=== PATIENT | male | born 1950 ===

== ENCOUNTER 2022-01-15 22:51 | Inpatient (IN) | payer OTHER ==
[~2022-01-15] VITALS: Ht 180.3 cm; Wt 81.2 kg
--- NOTE | 2022-01-15 23:09 | NUR ---
Pt bib pvt ambulance from [facility] for medical clearance for admission to MHU, pt is on 5150 hold, accepted by Dr. Madrid for DTS.
--- NOTE | 2022-01-15 23:15 | NUR ---
Dr. Meyer on bedside for MSE.
[2022-01-15] MEDS ORDERED: LATA2.5D15 EACHEYE (23:22)
[2022-01-15] MEDS ORDERED: CHOL1CRY2 PO (23:22)
[2022-01-15] MEDS ORDERED: HYDR-3980 PO (23:22)
[2022-01-15] MEDS ORDERED: DOCU100C36 PO (23:22)
[2022-01-15] MEDS ORDERED: ATOR40TA PO (23:22)
[2022-01-15] MEDS ORDERED: TAMS-3 PO (23:22)
[2022-01-15] MEDS ORDERED: IBUP-1957 PO (23:22)
[2022-01-15] MEDS ORDERED: POLY15DR27 EACHEYE (23:22)
[2022-01-15] MEDS ORDERED: ASPI-612 PO (23:22)
[2022-01-15] MEDS ORDERED: MECL-159 PO (23:22)
[2022-01-15] MEDS ORDERED: FLUT16SP16 BNOSTRILS (23:22)
[2022-01-15] MEDS ORDERED: DULO30CA2 PO (23:22)
[2022-01-15] MEDS ORDERED: LISI10TA29 PO (23:22)
[2022-01-15] MEDS ORDERED: SILD50TA PO (23:22)
[2022-01-15] MEDS ORDERED: ACET-73 PO (23:22)
--- NOTE | 2022-01-16 00:43 | NUR ---
Pt. admitted to MHU, room 145C, under care of Dr. Madrid. Report given to KATHERINE Gomez. Belongs List completed
[2022-01-16 00:50] VITALS: BP 143/74
[2022-01-16] MEDS ORDERED: MAG HYDROX/AL HYDROX/SIMETH 30 ML LIQUID UDC PO PRN (02:30)
[2022-01-16] MEDS ORDERED: ACETAMINOPHEN 325 MG TABLET PO PRN (02:30)
[2022-01-16] MEDS ORDERED: MAGNESIUM HYDROXIDE 30 ML LIQUID UDC PO PRN (02:30)
[2022-01-16 06:49] LABS: *BILIRUBIN,URIN NEGATIVE (NEGATIVE); *CLARITY,URINE CLEAR (CLEAR); *COLOR,URINE YELLOW (YELLOW); *KETONES,URINE NEGATIVE (NEGATIVE); *UROBILINOGEN,URINE 0.2 E.U./dl (NORMAL); LEUKOCYTE ESTERASE ,URINE NEGATIVE (NEGATIVE); NITRITE, URINE NEGATIVE (NEGATIVE); UGLUCOSE NEGATIVE (NEGATIVE)
[2022-01-16 06:50] LABS: *BLOOD, URINE TRACE (NEGATIVE)
[2022-01-16 06:56] LABS: BACTERIA,URINE NONE SEEN /HPF (NONE SEEN); WBC,URINE NONE SEEN /HPF (0-3)
[2022-01-16 06:57] LABS: SQUAMOUS EPITHELIAL CELL,UR FEW /HPF (NONE SEEN)
[2022-01-16] MEDS: LORAZEPAM 0.5 MG TABLET PO PRN (09:02)
--- NOTE | 2022-01-16 09:18 | NUR ---
Gps/Long Distance Billing Operator- Awake , alert, noted to be anxious, encouraged to eat his breakfast, claimed not feeling well, noted nervous ,too much noise per patient. Ambulated with P.T. slightly unsteady gait, per P.T. Frequency in urinating noted, ambulates to the bathroom sba. , bed alarm on , urinal place with in his reach .
[2022-01-16 09:53] VITALS: BP 162/86
--- NOTE | 2022-01-16 16:00 | NUR ---
Gps/Post Form Remover-Called Dr Saqib Ryder, informed of elevated B/P's , orders was received.
[2022-01-16] MEDS ORDERED: FLUTICASONE PROP NASAL SPRAY 16 GM BOTTLE NS PRN (16:15)
[2022-01-16] MEDS: LISINOPRIL 10 MG TABLET PO SCH (16:29)
[2022-01-16] MEDS: METOPROLOL TARTRATE 25 MG TABLET PO SCH ×2 (16:30→20:31)
[2022-01-16 16:32] VITALS: BP 166/78
--- NOTE | 2022-01-16 17:00 | NUR ---
Gps/Panel Beater- Patient's son Albert in to visit patient, reviewed medications as requested, verbalized understanding.
[2022-01-16] MEDS: DOCUSATE SODIUM 100 MG CAPSULE PO SCH (17:08)
[2022-01-16 20:00] VITALS: BP 124/82
[2022-01-16] MEDS: TAMSULOSIN HCL 0.4 MG CAP.SR.24H PO SCH (20:30)
[2022-01-16] MEDS: ATORVASTATIN 40 MG TABLET PO SCH (20:30)
[2022-01-16] MEDS: HYDROCODONE/APAP 10-325 MG TABLET PO PRN (20:32)
[2022-01-16] MEDS: LATANOPROST OPHT DROP 2.5 ML BOTTLE EACHEYE SCH (21:00)
[2022-01-17] MEDS: LORAZEPAM 0.5 MG TABLET PO PRN (02:29)
--- NOTE | 2022-01-17 06:33 | NUR ---
Patient slept 5.15 hours last night. The patient is depressed, but denied SI at this time. Patient verbalized not wanting to go back to where he was living and seemed anxious. A couple of times he got up during the night to void. Patient had a hard time sleeping so he took a shower and slept after that. Safety stratiges are in place. VS were WNL and the patient has been medication compliant. Some forgetfulness noted.
[2022-01-17 07:30] VITALS: BP 170/91
[2022-01-17] MEDS: LISINOPRIL 10 MG TABLET PO SCH (08:00)
[2022-01-17] MEDS: METOPROLOL TARTRATE 25 MG TABLET PO SCH ×2 (08:01→20:19)
[2022-01-17] MEDS: ASPIRIN 325 MG TABLET PO SCH (08:14)
[2022-01-17] MEDS: DOCUSATE SODIUM 100 MG CAPSULE PO SCH ×2 (08:16→17:54)
[2022-01-17] MEDS: CHOLECALCIFEROL 1,000 UNIT TABLET PO SCH (08:18)
[2022-01-17 16:00] VITALS: BP 159/95
[2022-01-17] MEDS ORDERED: DULOXETINE 30 MG CAPSULE.DR PO SCH (17:00)
--- NOTE | 2022-01-17 17:00 | NUR ---
Gps/Systems Lead- Patient anxious verbalizing concerns that he hasnt moved his bowels today, claimed had good bowel movement yesterday. Adequate fluid intake , on routine stool softener , patient reassured to give it time. Had been cooperative with staff , medsurekha. evelyn , had 2 visitors (sons) visited him today Had been in and out of his room, encouraged to stay in the dinning room during his meals.
[2022-01-17 20:04] VITALS: BP 176/96
[2022-01-17] MEDS: TAMSULOSIN HCL 0.4 MG CAP.SR.24H PO SCH (20:19)
[2022-01-17] MEDS: ATORVASTATIN 40 MG TABLET PO SCH (20:19)
[2022-01-17] MEDS: POLYVINYL ALCOHOL OPHT DROPS 15 ML BOTTLE EACHEYE PRN (20:20)
[2022-01-17] MEDS: HYDROCODONE/APAP 10-325 MG TABLET PO PRN (20:20)
[2022-01-17] MEDS: LATANOPROST OPHT DROP 2.5 ML BOTTLE EACHEYE SCH (21:00)
[2022-01-17] MEDS: TEMAZEPAM 7.5 MG CAPSULE PO PRN (21:38)
[2022-01-18] MEDS: LORAZEPAM 0.5 MG TABLET PO PRN ×2 (03:17→09:28)
[2022-01-18] MEDS: HYDROCODONE/APAP 10-325 MG TABLET PO PRN (03:17)
--- NOTE | 2022-01-18 06:11 | NUR ---
Patient slept on and off last night for 5.30 hours. Patient is up early, anxious and wanted to shower. While in the shower, he had a bloody nose. At night this patient c/o pain in his hip for which he was medicated. Also, he had to get up frequently to urinate and was often anxious appearing. No active SI noted. The patient is forgetful and confused at times and needs reorientation to the situation along with reassurance. Again, the patient verbalized that he is worried and does not want to return home with his . Safety Stratiges are in place.
[2022-01-18 07:51] VITALS: BP 114/66
[2022-01-18] MEDS: ASPIRIN 325 MG TABLET PO SCH ×2 (09:00→09:28)
[2022-01-18] MEDS: DOCUSATE SODIUM 100 MG CAPSULE PO SCH ×2 (09:28→18:29)
[2022-01-18] MEDS: LISINOPRIL 10 MG TABLET PO SCH (09:28)
[2022-01-18] MEDS: CHOLECALCIFEROL 1,000 UNIT TABLET PO SCH (09:28)
[2022-01-18] MEDS: METOPROLOL TARTRATE 25 MG TABLET PO SCH ×2 (09:29→20:39)
--- NOTE | 2022-01-18 14:55 | NUR ---
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 I do not know what happened..", unable to formulate a viable plan for self care, depressed mood and anxious affect, needs a lot of prompting to participate in therapeutic groups, continue to monitor for safety, continue with treatment plan.
--- NOTE | 2022-01-18 15:38 | NUR ---
JOAO Discharge Note: Pt was brought to [facility] from [facility] due to suicide attempt at [facility]. JOAO spoke with pt's son, Albert who stated that pt will be discharged back to live with him upon discharge at [address] [place] [address]. Pt does not have a DPOA or conservatorship.
--- NOTE | 2022-01-18 15:39 | NUR ---
Admit Source: Pt was brought to [facility] from [facility] due to suicide attempt at [facility]. SW spoke with pt's son, Albert who stated that pt will be discharged back to live with him upon discharge at [address] [place] [address]. Pt does not have a DPOA or conservatorship.
--- NOTE | 2022-01-18 16:08 | NUR ---
Firearms Report: [facility] completed and submitted a [employer] firearms report for 5150 harm to self. A copy of report has been placed in patient chart.
--- NOTE | 2022-01-18 16:09 | NUR ---
JOAO Initial Discharge Note: Pt was brought to [facility] from [facility] due to suicide attempt at [facility]. JOAO spoke with pt's son, Albert who stated that pt will be discharged back to live with him upon discharge at [address] [place] [address]. Pt does not have a DPOA or conservatorship.
--- NOTE | 2022-01-18 16:20 | NUR ---
JOAO UR Note: JOAO returned Thuy's call ([phone]) with [employer] insurance and left 2 voicemails for a call back stating pt's current status and to discuss authorization for continuation of care at [facility] due to last day of authorized care on 01/18/22.
[2022-01-18] MEDS ORDERED: DULOXETINE 30 MG CAPSULE.DR PO SCH (17:00)
[2022-01-18] MEDS: DULOXETINE 60 MG CAPSULE.DR PO SCH (18:29)
[2022-01-18] MEDS: TAMSULOSIN HCL 0.4 MG CAP.SR.24H PO SCH (20:38)
[2022-01-18] MEDS: ATORVASTATIN 40 MG TABLET PO SCH (20:39)
[2022-01-18] MEDS: LATANOPROST OPHT DROP 2.5 ML BOTTLE EACHEYE SCH (20:39)
[2022-01-18 22:14] VITALS: BP 139/80
[2022-01-19 06:42] LABS: HEMATOCRIT 40.7 % (36.7-47.1); MEAN CORPUSCULAR HEMOGLOBIN 34.5 uug (23.8-33.4); MEAN CORPUSCULAR VOLUME 97.6 fL (73.0-96.2); PLATELET COUNT (AUTO) 256 K/uL (152-348)
[2022-01-19 07:35] LABS: BILIRUBIN,TOTAL 0.8 mg/dL (0.2-1.0); CREATININE 0.7 mg/dL (0.6-1.3); MAGNESIUM 2.2 mg/dL (1.8-2.4); PHOSPHOROUS 3.4 mg/dL (2.5-4.9); POTASSIUM 4.3 mmol/L (3.5-5.1); TOTAL PROTEIN, SERUM 6.4 g/dL (6.4-8.2)
[2022-01-19 07:58] VITALS: BP 150/87
[2022-01-19 08:00] LABS: THYROID STIMULATING HORMONE 4.317 mIU/mL (0.358-3.740)
[2022-01-19] MEDS: CHOLECALCIFEROL 1,000 UNIT TABLET PO SCH (08:48)
[2022-01-19] MEDS: DOCUSATE SODIUM 100 MG CAPSULE PO SCH ×2 (08:48→18:01)
[2022-01-19] MEDS: METOPROLOL TARTRATE 25 MG TABLET PO SCH ×2 (08:48→20:45)
[2022-01-19] MEDS: LISINOPRIL 10 MG TABLET PO SCH (08:49)
[2022-01-19] MEDS: ASPIRIN 325 MG TABLET PO SCH (08:49)
--- NOTE | 2022-01-19 09:18 | NUR ---
JOAO UR Note Update: JOAO contacted Thuy ([phone]) with [facility] insurance and another voicemail for a call back to discuss authorization for continuation of care at [facility] due to last day of authorized care on 01/18/22. JOAO stated we are concerned that we have not heard back as pt requires authorization for continued care at [facility]. Authorization number was not left in the voicemail by the insurance.
--- NOTE | 2022-01-19 13:26 | NUR ---
JOAO UR Note Update: JOAO contacted Thuy ([phone]) with [facility] insurance and discussed pt's case. Thuy authorized the pt for continuation of care at [facility] until 01/21/22. Authorization number: [id number]. Pt's family is notified.
[2022-01-19 15:33] VITALS: BP 145/74
[2022-01-19] MEDS: DULOXETINE 60 MG CAPSULE.DR PO SCH (18:01)
--- NOTE | 2022-01-19 18:27 | NUR ---
GPS: Nursing Notes: Destructive Behavior to Self: Patient is awake and responding to his name, cooperative with nursing care, compliant with his medications, denies SI/HI, depressed mood and anxious affect, needs prompting to participate in therapeutic groups, stated that he is sorry of what he did, "I will never do it again.... I read the Bible.. I go to zoroastrian.. I do not know what happened..", unable to formulate a viable plan for self care, continue to monitor for safety, continue with treatment plan.
[2022-01-19 20:22] VITALS: BP 156/88
[2022-01-19] MEDS: TAMSULOSIN HCL 0.4 MG CAP.SR.24H PO SCH (20:45)
[2022-01-19] MEDS: ATORVASTATIN 40 MG TABLET PO SCH (20:45)
[2022-01-19] MEDS: LATANOPROST OPHT DROP 2.5 ML BOTTLE EACHEYE SCH (21:00)
[2022-01-19] MEDS: POLYVINYL ALCOHOL OPHT DROPS 15 ML BOTTLE EACHEYE PRN (21:01)
[2022-01-20 07:30] VITALS: BP 160/98
[2022-01-20] MEDS: DOCUSATE SODIUM 100 MG CAPSULE PO SCH ×2 (08:12→16:50)
[2022-01-20] MEDS: ASPIRIN EC 81 MG TABLET.DR PO SCH (08:12)
[2022-01-20] MEDS: CHOLECALCIFEROL 1,000 UNIT TABLET PO SCH (08:12)
[2022-01-20] MEDS: LISINOPRIL 10 MG TABLET PO SCH (08:13)
[2022-01-20] MEDS: METOPROLOL TARTRATE 25 MG TABLET PO SCH ×2 (08:14→20:53)
[2022-01-20] MEDS: DULOXETINE 60 MG CAPSULE.DR PO SCH (13:12)
[2022-01-20 16:00] VITALS: BP 176/99
--- NOTE | 2022-01-20 16:13 | NUR ---
Received patient sleeping in his room. A/O X 3 to person, place. Pt. is calm, cooperative, depressed, low energy, isolative. Compliant with medications. Patient ambulates independently. Self care. Denies SI/HI AH/VH. Active listening provided. Fall and safety precautions implemented.
[2022-01-20] MEDS: hydrALAZINE HCL 25 MG TABLET PO PRN (16:51)
--- NOTE | 2022-01-20 16:55 | NUR ---
Patient is given Hydralazine 25 mg for high blood pressure of 176/99, will be monitored for effectiveness.
--- NOTE | 2022-01-20 17:57 | NUR ---
Patient blood pressure is 144/83, pulse 74, PRN hydralazine was effective.
[2022-01-20 20:00] VITALS: BP 139/80
--- NOTE | 2022-01-20 20:45 | NUR ---
RECEIVED PATIENT IN HIS ROOM IN BED. HE IS NOTED AWAKE A/O X 3 ABLE TO VERBALIZED FEELINGS. PATIENT DENIED SI/HI/VH/AH HE STATED HE CONTINUE FEELINGS SAD BUT HE IS ABLE TO VERBALLY CFS. PATIENT IS AWARE OF HIS POSSIBLE DISCHARGE TOMORROW AFTERNOON. HE IS NOTED PREOCCUPIED AND ANXIOUS ABOUT HIS IMPENDING DISCHARGE. HE IS REASSURED FOR HIS SAFETY, SAFETY AND FALL PRECAUTIONS ARE IN PLACE. V/S STABLE. HE WAS GIVEN PO FLUIDS AND SNACKS. WILL CONTINUE TO MONITOR.
[2022-01-20] MEDS: TAMSULOSIN HCL 0.4 MG CAP.SR.24H PO SCH (20:53)
[2022-01-20] MEDS: LATANOPROST OPHT DROP 2.5 ML BOTTLE EACHEYE SCH (20:53)
[2022-01-20] MEDS: ATORVASTATIN 40 MG TABLET PO SCH (20:53)
[2022-01-21] MEDS: LORAZEPAM 0.5 MG TABLET PO PRN (06:50)
--- NOTE | 2022-01-21 06:51 | NUR ---
Patient noted hyperverbal, anxious. Ativan 0.5mg po prn was given for anxiety, will continue to monitor.
[2022-01-21 07:30] VITALS: BP 170/97
[2022-01-21] MEDS: DOCUSATE SODIUM 100 MG CAPSULE PO SCH ×2 (08:28→17:26)
[2022-01-21] MEDS: CHOLECALCIFEROL 1,000 UNIT TABLET PO SCH (08:28)
[2022-01-21] MEDS: ASPIRIN EC 81 MG TABLET.DR PO SCH (08:28)
[2022-01-21] MEDS: LISINOPRIL 10 MG TABLET PO SCH (08:29)
[2022-01-21] MEDS: METOPROLOL TARTRATE 25 MG TABLET PO SCH ×2 (08:29→20:22)
[2022-01-21 10:49] VITALS: BP 117/76
--- NOTE | 2022-01-21 11:27 | NUR ---
JOAO UR Note Update: JOAO contacted Olesya from [facility] insurance ([phone]) for pt's authorization review. JOAO left a voicemail for a call back with pt's information to discuss pt's case as last authorized day for care is today, 01/21/22. Authorization #[id number].
[2022-01-21] MEDS: DULOXETINE 60 MG CAPSULE.DR PO SCH (12:17)
--- NOTE | 2022-01-21 14:20 | NUR ---
JOAO UR Note Update: JOAO contacted Olesya from [facility] insurance ([phone]) for pt's authorization review. JOAO left a voicemail for a call back and provided all of the clinicals that Olesya stated to do so in the voicemail for doctor to review. Pt's last authorized day for care is today, 01/21/22. Authorization #[id number]. Pt and pt's son, Albert ([phone]) are aware of the current status and ready for discharge today if insurance does not authorize continuation of care.
--- NOTE | 2022-01-21 15:36 | NUR ---
Received patient sleeping in his room. A/O X 3 to person, place. Pt. is cooperative with care and complaint with medications, depressed, disorganized. BP was 170/97, Lisinopril 10 mg given as scheduled, BP is 117/76 after an hour. Reassurance given. Denies SI/HI AH/VH. Fall and safety precautions implemented.
[2022-01-21 16:51] VITALS: BP 129/84
[2022-01-21 20:00] VITALS: BP 136/76
[2022-01-21] MEDS: TAMSULOSIN HCL 0.4 MG CAP.SR.24H PO SCH (20:22)
[2022-01-21] MEDS: LATANOPROST OPHT DROP 2.5 ML BOTTLE EACHEYE SCH (20:22)
[2022-01-21] MEDS: ATORVASTATIN 40 MG TABLET PO SCH (21:20)
[2022-01-22] MEDS: TEMAZEPAM 7.5 MG CAPSULE PO PRN (01:27)
[2022-01-22 07:37] VITALS: BP 143/87
[2022-01-22] MEDS: ASPIRIN EC 81 MG TABLET.DR PO SCH (08:36)
[2022-01-22] MEDS: LISINOPRIL 10 MG TABLET PO SCH (08:36)
[2022-01-22] MEDS: DOCUSATE SODIUM 100 MG CAPSULE PO SCH ×2 (08:36→17:01)
[2022-01-22] MEDS: CHOLECALCIFEROL 1,000 UNIT TABLET PO SCH (08:36)
[2022-01-22] MEDS: METOPROLOL TARTRATE 25 MG TABLET PO SCH ×2 (08:37→20:11)
--- NOTE | 2022-01-22 09:19 | NUR ---
JOAO UR Note Update: JOAO contacted Olesya from [facility] insurance ([phone]) for pt's authorization review. JOAO left a voicemail for a call back to discuss continuation of care. Authorization #[id number]. Pt and pt's son, Albert ([phone]) are aware of the current status and ready for discharge today if insurance does not authorize continuation of care.
[2022-01-22] MEDS: FLUOXETINE HCL 20 MG CAPSULE PO SCH (10:01)
[2022-01-22] MEDS: DULOXETINE 20 MG CAPSULE.DR PO SCH (12:49)
--- NOTE | 2022-01-22 13:14 | NUR ---
JOAO UR Note Update: JOAO spoke with Olesya from [facility] insurance ([phone]) for pt's authorization review. Olesya stated pt is authorized for continuation of care until Tuesday, January 25, 2022. Authorization #[id number]. Pt and pt's son, Albert ([phone]) are aware of the current status and agreeable.
--- NOTE | 2022-01-22 15:07 | NUR ---
Received patient sleeping in his room. Pt. is calm, depressed at times, cooperative with care and compliant with medications. Ambulates independently. Denies SI/HI AH/VH. Pt. is encourage to verbalize concerns. Fall and safety precautions implemented.
[2022-01-22] MEDS: hydrALAZINE HCL 25 MG TABLET PO PRN (16:19)
[2022-01-22 16:39] VITALS: BP 168/98
[2022-01-22 18:11] VITALS: BP 167/85
[2022-01-22] MEDS: LATANOPROST OPHT DROP 2.5 ML BOTTLE EACHEYE SCH (20:11)
[2022-01-22] MEDS: LORAZEPAM 0.5 MG TABLET PO PRN (20:11)
[2022-01-22] MEDS: TAMSULOSIN HCL 0.4 MG CAP.SR.24H PO SCH (20:11)
[2022-01-22] MEDS: ATORVASTATIN 40 MG TABLET PO SCH (20:11)
[2022-01-22 20:17] VITALS: BP 144/87
[2022-01-23] MEDS: FLUOXETINE HCL 20 MG CAPSULE PO SCH (08:32)
[2022-01-23] MEDS: CHOLECALCIFEROL 1,000 UNIT TABLET PO SCH (08:32)
[2022-01-23] MEDS: ASPIRIN EC 81 MG TABLET.DR PO SCH (08:32)
[2022-01-23] MEDS: METOPROLOL TARTRATE 25 MG TABLET PO SCH ×2 (08:32→20:25)
[2022-01-23] MEDS: DOCUSATE SODIUM 100 MG CAPSULE PO SCH ×2 (08:33→16:18)
[2022-01-23] MEDS: LISINOPRIL 20 MG TABLET PO SCH (08:33)
[2022-01-23 09:19] VITALS: BP 151/89
[2022-01-23] MEDS: DULOXETINE 20 MG CAPSULE.DR PO SCH (12:40)
--- NOTE | 2022-01-23 15:11 | NUR ---
GPS: Nursing Notes: Destructive Behavior To Self: Patient is awake and responding to his name, depressed mood and anxious affect at times, compliant with his medications, denies SI/HI, believes that what he did was wrong, stated "I will never due it again..", continue to monitor for safety, needs prompting to participate in therapeutic groups, assisted with ADL's, unable to formulate a viable plan for self care, continue with treatment plan.
[2022-01-23] MEDS: LORAZEPAM 0.5 MG TABLET PO PRN ×2 (16:42→20:24)
[2022-01-23] MEDS: hydrALAZINE HCL 25 MG TABLET PO PRN (16:42)
[2022-01-23 17:11] VITALS: BP 160/100
[2022-01-23] MEDS: ATORVASTATIN 40 MG TABLET PO SCH (20:24)
[2022-01-23] MEDS: TAMSULOSIN HCL 0.4 MG CAP.SR.24H PO SCH (20:24)
[2022-01-23] MEDS: LATANOPROST OPHT DROP 2.5 ML BOTTLE EACHEYE SCH (20:26)
[2022-01-23 22:00] VITALS: BP 116/60
[2022-01-24 07:50] VITALS: BP 141/85
[2022-01-24] MEDS: ASPIRIN EC 81 MG TABLET.DR PO SCH (08:48)
[2022-01-24] MEDS: CHOLECALCIFEROL 1,000 UNIT TABLET PO SCH (08:48)
[2022-01-24] MEDS: DOCUSATE SODIUM 100 MG CAPSULE PO SCH ×2 (08:49→16:15)
[2022-01-24] MEDS: FLUOXETINE HCL 20 MG CAPSULE PO SCH (08:49)
[2022-01-24] MEDS: LISINOPRIL 20 MG TABLET PO SCH (08:49)
[2022-01-24] MEDS: METOPROLOL TARTRATE 25 MG TABLET PO SCH ×2 (08:49→20:30)
[2022-01-24] MEDS: DULOXETINE 20 MG CAPSULE.DR PO SCH (12:20)
[2022-01-24] MEDS: LORAZEPAM 0.5 MG TABLET PO PRN ×2 (12:20→20:31)
[2022-01-24 16:19] VITALS: BP 127/81
[2022-01-24 20:00] VITALS: BP 133/78
[2022-01-24] MEDS: LATANOPROST OPHT DROP 2.5 ML BOTTLE EACHEYE SCH (20:29)
[2022-01-24] MEDS: TAMSULOSIN HCL 0.4 MG CAP.SR.24H PO SCH (20:30)
[2022-01-24] MEDS: ATORVASTATIN 40 MG TABLET PO SCH (20:31)
[2022-01-25] MEDS: HYDROCODONE/APAP 10-325 MG TABLET PO PRN (02:51)
[2022-01-25 07:26] LABS: CREATININE 0.8 mg/dL (0.6-1.3); POTASSIUM 4.1 mmol/L (3.5-5.1)
[2022-01-25 07:45] VITALS: BP 133/82
[2022-01-25] MEDS: ASPIRIN EC 81 MG TABLET.DR PO SCH (08:16)
[2022-01-25] MEDS: CHOLECALCIFEROL 1,000 UNIT TABLET PO SCH (08:16)
[2022-01-25] MEDS: DOCUSATE SODIUM 100 MG CAPSULE PO SCH (08:16)
[2022-01-25 08:17] VITALS: BP 133/82
[2022-01-25] MEDS: LISINOPRIL 20 MG TABLET PO SCH (08:17)
[2022-01-25] MEDS: METOPROLOL TARTRATE 25 MG TABLET PO SCH (08:17)
[2022-01-25] MEDS: FLUOXETINE HCL 20 MG CAPSULE PO SCH (08:17)
--- NOTE | 2022-01-25 08:58 | NUR ---
JOAO Discharge Note: Pt will be discharged to Home [address] [facility] [address] via Family transportation at 5PM by pts son, Albert ([phone]). JOAO spoke with Albert who stated that he is are ready to provide transportation for the pts safe return home today. Pt is aware and agreeable with discharge plans. Olesya from [facility] insurance who authorized pts continuation of care until 01/25/22 is aware of the pts discharge plan. Pt is alert and oriented x4, is unable to plan for self-care at this time; however, is willing to return home to his sons care. Pt denies any suicidal or homicidal ideation. Pt will follow-up with outpatient psychiatric care via telephone at [facility]. JOAO will provide appointment details to the family upon discharge. Pt presents with calm mood and congruent affect. PHARMACY: [facility] ([phone]) [address] [facility], [address].
[2022-01-25] MEDS ORDERED: FLUOXETINE HCL 20 MG CAPSULE PO ONE (11:00)
--- NOTE | 2022-01-25 16:00 | NUR ---
GPS: Nursing Notes: Discharge Notes: Patient is awake and responding to his name, cooperative with nursing care, compliant with his medications, following staff directions, denies SI/HI, denies AH/VH, denies pain or discomfort, denies SOB, A/Ox3-4, discharge home with his son - Albert at [address] [place] [address], instructions given to his son - Ender and patient, transported home via private vehicle, took all his belongings and valuables with him, Dr. Madrid will call his preferred pharmacy - [facility] pharmacy at [place], [place]. Patient will follow up with [facility] - Outpatient psychiatrist via Telehealth and his primary care physician as soon as possible.
[2022-01-26] MEDS ORDERED: FLUOXETINE HCL 20 MG CAPSULE PO SCH (08:00)
== END 2022-01-25 16:00 | disposition home or self-care (01) | DRG 885 ==
LOC: ER 22:56 → GPS 01-16 00:22
PROVIDERS: ADMIT Psychiatry & Neurology Psychosomatic Medicine; ATTEND Internal Medicine
DX: F33.2 Major depressive disorder, recurrent severe without psychotic features (principal); R45.851 Suicidal ideations; E87.1 Hypo-osmolality and hyponatremia; H26.239 Glaucomatous flecks (subcapsular), unspecified eye; G89.29 Other chronic pain; M19.90 Unspecified osteoarthritis, unspecified site; H40.9 Unspecified glaucoma; N40.0 Benign prostatic hyperplasia without lower urinary tract symptoms; I10 Essential (primary) hypertension; T71.162D Asphyxiation due to hanging, intentional self-harm, subsequent encounter; Z86.73 Personal history of transient ischemic attack (TIA), and cerebral infarction without residual deficits; M51.9 Unspecified thoracic, thoracolumbar and lumbosacral intervertebral disc disorder
CPT/HCPCS: 36415; 83735; 83935; 84100; 84300; 84443; 85025; 97161; A4663; J3535